=== PATIENT | male | born 1990 | race Caucasian/White ===

== ENCOUNTER 2017-02-13 15:58 | Emergency (ER) | payer SELFPAY ==
[2017-02-13 16:13] VITALS: BP 117/70
--- NOTE | 2017-02-21 16:32 | UC ---
Bimal Norris Alfonso, scribed for Titus Pederson MD on 02/13/17 at 1641 . Abdominal Pain Male HPI - HPI Summary HPI Summary: This patient is a 26 year old M presenting to [facility] with a chief complaint of lower abdominal cramping for 24 hours. The CC is described as sharp and intermittent. The patient rates the pain 2/10 in severity. Symptoms aggravated by nothing. Symptoms alleviated by BM. Patient reports diarrhea (ever 1-2 hours dark brown to saxena colored stool), fatigue, and lightheadedness. Patient denies fever, chills, N/V, blood in the stools, and testicular pain. He denies drinking any foreign water He reports eating a few wild apples. PSHx of appendectomy. Patients medications reviewed this visit. Patients allergies reviewed this visit. - History of Current Complaint Chief Complaint: UCAbdominalPain Stated Complaint: ABDOMINAL COMPLAINT Time Seen by Provider: 02/13/17 16:34 Hx Obtained From: Patient Onset/Duration: Sudden Onset, Lasting Hours - 24, Still Present Timing: Intermittent Episodes Lasting: Severity Initially: Mild Severity Currently: Mild Pain Intensity: 2 Pain Scale Used: 0-10 Numeric Character: Sharp Aggravating Factor(s):: Nothing Alleviating Factor(s): Spontaneous Resolution - BOWEL MOVEMENT Associated Signs And Symptoms: Positive: Other - Patient reports diarrhea (ever 1-2 hours dark brown to saxena colored stool), fatigue, and lightheadedness. Patient denies fever, chills, N/V, blood in the stools, and testicular pain. - Allergies/Home Medications Allergies/Adverse Reactions: Allergies Allergy/AdvReac Type Severity Reaction Status Date / Time No Known Allergies Allergy Verified 02/13/17 16:06 Home Medications: Home Medications Bismuth Subsalicylate [Pepto Bismol] 1 tab PO DAILY PRN 02/13/17 [History Confirmed 02/13/17] PMH/Surg Hx/FS Hx/Imm Hx Previously Healthy: Yes - Surgical History Surgical History: Yes Surgery Procedure, Year, and Place: 2001 - Family History Known Family History: Negative: Cardiac Disease - Social History Alcohol Use: Occasionally Substance Use Type: None Smoking Status (MU): Light Every Day Tobacco Smoker Type: Cigarettes Length of Time of Smoking/Using Tobacco: 1 pk/wk Have You Smoked in the Last Year: Yes Review of Systems Constitutional: Fatigue, Other - Negative fever, chills Gastrointestinal: Abdominal Pain, Diarrhea, Other - Negative N/V, blood in the stools Genitourinary: Other - Negative testicular pain. Neurological: Other - Lightheadedness All Other Systems Reviewed And Are Negative: Yes Physical Exam Triage Information Reviewed: Yes Appearance: Well-Appearing, No Pain Distress Vital Signs: Initial Vital Signs Temp 97.9 F 02/13/17 16:01 Pulse 63 02/13/17 16:01 Resp 16 02/13/17 16:01 BP 117/70 02/13/17 16:01 Pulse Ox 100 02/13/17 16:01 Eye Exam: Normal ENT: Positive: Normal ENT inspection Neck: Positive: Supple, Nontender Respiratory: Positive: Lungs clear, Normal breath sounds Cardiovascular: Positive: RRR, No Murmur Abdomen Description: Positive: Nontender Musculoskeletal: Positive: ROM Intact Neurological: Positive: Alert, Muscle Tone Normal Psychological: Positive: Age Appropriate Behavior Skin Exam: Normal Abd Pain Male Course/Dx - Course Course Of Treatment: This patient is a 26 year old M presenting to [facility] with a chief complaint of lower abdominal cramping for 24 hours. The CC is described as sharp and intermittent. The patient rates the pain 2/10 in severity. Symptoms aggravated by nothing. Symptoms alleviated by BM. Patient reports diarrhea (ever 1-2 hours dark brown to saxena colored stool), fatigue, and lightheadedness. Patient denies fever, chills, N/V, blood in the stools, and testicular pain. He denies drinking any foreign water He reports eating a few wild apples. PSHx of appendectomy. Patients medications reviewed this visit. Patients allergies reviewed this visit. Patient will be discharged with follow up from PCP. The patient is agreeable with this plan. - Differential Dx/Clinical Impression Provider Diagnoses: diarrhea Discharge - Discharge Plan Condition: Good Disposition: HOME Patient Education Materials: Acute Diarrhea (ED) Forms: *Work Release Referrals: [facility] [place] [facility] REFERRAL [Outside] No Primary Care Phys,NOPCP [Primary Care Provider] - The documentation as recorded by the Bimal olivas Alfonso accurately reflects the service I personally performed and the decisions made by , Titus Pederson MD.
== END 2017-02-13 16:53 | disposition home or self-care (01) ==
LOC: UCEAST 15:58
DX: R19.7 Diarrhea, unspecified (principal); R53.83 Other fatigue; R42 Dizziness and giddiness; F17.210 Nicotine dependence, cigarettes, uncomplicated
CPT/HCPCS: 99201; G0463

== ENCOUNTER 2017-12-10 14:13 | Emergency (ER) | payer SELFPAY ==
[2017-12-10 14:47] VITALS: BP 124/71
--- NOTE | 2017-12-10 15:24 | UC ---
Ear Complaint HPI - HPI Summary HPI Summary: 27 year old male here with c/o decreased hearing from right ear for one week. Denies pain but reports symptoms started after he went swimming. No discharge from the ear. NO fever or chills. No URI symptoms. No history of cerumen impaction. - History of Current Complaint Chief Complaint: UCEar Stated Complaint: EAR COMPLAINT Time Seen by Provider: 12/10/17 15:04 Onset/Duration: Gradual Onset Severity Currently: None Pain Intensity: 2 Associated Signs/Symptoms: Positive: Hearing Loss - Allergies/Home Medications Allergies/Adverse Reactions: Allergies Allergy/AdvReac Type Severity Reaction Status Date / Time No Known Allergies Allergy Verified 12/10/17 14:47 PMH/Surg Hx/FS Hx/Imm Hx Previously Healthy: Yes - Surgical History Surgical History: Yes Surgery Procedure, Year, and Place: 2001 - Family History Known Family History: Negative: Cardiac Disease - Social History Alcohol Use: Occasionally Substance Use Type: None Smoking Status (MU): Light Every Day Tobacco Smoker Type: Cigarettes Length of Time of Smoking/Using Tobacco: 1 pk/wk Have You Smoked in the Last Year: Yes Review of Systems Constitutional: Negative Skin: Negative Eyes: Negative ENT: Negative Respiratory: Negative Cardiovascular: Negative Gastrointestinal: Negative Genitourinary: Negative Motor: Negative Neurovascular: Negative Musculoskeletal: Negative Neurological: Negative Psychological: Negative All Other Systems Reviewed And Are Negative: Yes Physical Exam Triage Information Reviewed: Yes Appearance: Well-Appearing, No Pain Distress Vital Signs: Initial Vital Signs Temp 36.6 C 12/10/17 14:45 Pulse 72 12/10/17 14:45 Resp 12 12/10/17 14:45 BP 124/71 12/10/17 14:45 Pulse Ox 100 12/10/17 14:45 ENT: Positive: Other - right ear with cerumen impaction, no pain with manpulation of tragus Left EAR nml exam Respiratory Exam: Normal Cardiovascular Exam: Normal Ear Complaint Course/Dx - Differential Dx/Diagnosis Differential Diagnosis/HQI/PQRI: Cerumen Impaction, Otitis Externa, URI Provider Diagnoses: Cerumen impaction Discharge - Sign-Out/Discharge Documenting (check all that apply): Discharge/Admit/Transfer - Discharge Plan Condition: Good Disposition: HOME Prescriptions: Carbamide Peroxide 6.5% OTIC* [DEBROX 6.5% Otic*] 5 drop BOTH EARS BID PRN #1 bottle PRN Reason: When wax build up develops Patient Education Materials: Cerumen Impaction (ED) Referrals: No Primary Care Phys,NOPCP [Primary Care Provider] - - Billing Disposition and Condition Condition: GOOD Disposition: Home
== END 2017-12-10 15:29 | disposition home or self-care (01) ==
LOC: UCEAST 14:13
DX: H61.21 Impacted cerumen, right ear (principal); F17.210 Nicotine dependence, cigarettes, uncomplicated
CPT/HCPCS: 99213; G0463